=== PATIENT | female | born 1955 ===

== ENCOUNTER 2019-10-11 05:36 | Day surgery (SDC) | payer OTHER | END 2019-10-11 12:30 | disposition home or self-care (01) | LOC: AMB-ENDOS 05:36 → ADM 15:30 | PROVIDERS: ATTEND Surgery | DX: K57.32 Diverticulitis of large intestine without perforation or abscess without bleeding (principal); K64.8 Other hemorrhoids; Z12.11 Encounter for screening for malignant neoplasm of colon ==